=== PATIENT | female | born 1985 | race Caucasian/White ===

== ENCOUNTER 2024-09-23 12:47 | Emergency (ER) | payer OTHER ==
[~2024-09-23] VITALS: Ht 162.6 cm; Wt 79.4 kg
[2024-09-23 13:05] VITALS: BP 116/73; TEMP 98.1
[2024-09-23] MEDS ORDERED: POLY10DR OP (13:45)
[2024-09-23 13:51] VITALS: O2SAT 100
== END 2024-09-23 13:51 | disposition home or self-care (01) ==
LOC: ER 12:47
DX: H10.11 Acute atopic conjunctivitis, right eye (principal); Z88.8 Allergy status to other drugs, medicaments and biological substances